=== PATIENT | female | born 1975 | race Caucasian/White ===

== ENCOUNTER 2020-07-09 14:36 | Emergency (ER) | payer OTHER, BC ==
[2020-07-09 15:00] VITALS: BP 121/73; PULSE 92
[2020-07-09] MEDS ORDERED: HYDROmorphone 1 MG/ML Syringe IVPUSH ONE ×2 (15:03→16:26)
[2020-07-09] MEDS ORDERED: Ondansetron 4 MG/2 ML SDV IVPUSH ONE (15:03)
[2020-07-09] MEDS ORDERED: Sodium Chloride 0.9% 1,000 ML IV ONE (15:11)
--- NOTE | 2020-07-09 15:13 | EDM.PDOC ---
"ED HPI GENERAL MEDICAL PROBLEM - General Chief Complaint: Gastrointestinal Problem Stated Complaint: RIGHT LOWER QUADRANT PAIN Time Seen by Provider: 07/09/20 15:10 Source of Information: Reports: Patient, RN, RN Notes Reviewed History Limitations: Reports: No Limitations - History of Present Illness INITIAL COMMENTS - FREE TEXT/NARRATIVE: Patient presents to the ED from the [facility] with complaints of abdominal pain, fever, and general malaise. She report the pain began in her RLQ on Tuesday night (07/06/2020), and has since progressively worsened. She describes it as burning in nature, and states it waxes and wanes in intensity but is always present. She states it originates in her RLQ but radiates into her right flank. She notes her Tmax at 101.3 last night which did respond to OTC acetaminophen. She attests to nausea which began with the pain. She denies vomiting, dysuria, hematuria, diarrhea, melena, or hematochezia. She notes her last bowel movement was about a week ago; she states this is normal for her as she is on chronic narcotics. Her LMP was . Right Lower Abdominal Pain Score (Numeric/FACES): 8 - Related Data Allergies Allergy/AdvReac Type Severity Reaction Status Date / Time No Known Allergies Allergy Verified 07/09/20 14:44 Home Meds: Home Meds Levothyroxine Sodium [Synthroid] 100 mcg PO DAILY 07/21/18 [History] Sertraline HCl [Zoloft] 50 mg PO DAILY 07/21/18 [History] Topiramate 100 mg PO DAILY 07/21/18 [History] buPROPion HCL [Wellbutrin Xl] 300 mg PO DAILY 07/21/18 [History] Past Medical History HEENT History: Reports: None Cardiovascular History: Reports: None, Other (See Below) Other Cardiovascular History: mitral valve prolapse Respiratory History: Reports: None Gastrointestinal History: Reports: None Genitourinary History: Reports: UTI, Recurrent [employer] History: Reports: Musculoskeletal History: Reports: Back Pain, Chronic Neurological History: Reports: None Psychiatric History: Reports: Depression Endocrine/Metabolic History: Reports: Hypothyroidism Hematologic History: Reports: None Immunologic History: Reports: None Oncologic (Cancer) History: Reports: None Dermatologic History: Reports: None - Infectious Disease History Infectious Disease History: Reports: Chicken Pox - Past Surgical History Head Surgeries/Procedures: Reports: None Female Surgical History: Reports: Tubal Ligation Neurological Surgical History: Reports: Spinal Fusion Musculoskeletal Surgical History: Reports: Other (See Below) Other Musculoskeletal Surgeries/Procedures:: spinal fusion, spinal repair, spinal leak, stimulator trial and implant Social & Family History - Family History Family Medical History: Noncontributory - Tobacco Use Tobacco Use Status *Q: Never Tobacco User Second Hand Smoke Exposure: No - Caffeine Use Caffeine Use: Reports: Coffee, Soda - Recreational Drug Use Recreational Drug Use: No ED ROS GENERAL - Review of Systems Review Of Systems: Comprehensive ROS is negative, except as noted in HPI. ED EXAM, GI/ABD - Physical Exam Exam: See Below Exam Limited By: No Limitations General Appearance: Alert, WD/WN, Mild Distress Respiratory/Chest: No Respiratory Distress, Lungs Clear, Normal Breath Sounds, No Accessory Muscle Use, Chest Non-Tender Cardiovascular: Normal Peripheral Pulses, No Edema, No Gallop, No Murmur, No Rub, Tachycardia GI/Abdominal Exam: Normal Bowel Sounds, Soft, No Distention, No Mass, Pelvis Stable, Guarding, Rebound, Tender (To palpation of RLQ and RUQ). No: Rigid (Female) Exam: Deferred Rectal (Female) Exam: Deferred Back Exam: Normal Inspection, Full Range of Motion, CVA Tenderness (L). No: CVA Tenderness (R) Extremities: Normal Inspection, Normal Range of Motion, Non-Tender, No Pedal Edema, Normal Capillary Refill Neurological: Alert, Oriented, CN II-XII Intact, Normal Cognition, Normal Gait, No Motor/Sensory Deficits Psychiatric: Normal Affect, Normal Mood Skin Exam: Warm, Intact, Normal Color, No Rash, Diaphoretic. No: Ecchymosis, Erythema, Mottled, Pallor, Petechiae, Rash Course - Vital Signs Last Recorded V/S: Last Vital Signs Temp 98.5 F 07/09/20 14:45 Pulse 92 07/09/20 14:45 Resp 18 07/09/20 14:45 BP 121/73 07/09/20 14:45 Pulse Ox 100 07/09/20 14:45 - Orders/Labs/Meds Orders: Active Orders 24 hr Category Date Time Status CULTURE BLOOD [BC] Stat Lab 07/09/20 14:54 Received CULTURE BLOOD [BC] Stat Lab 07/09/20 15:03 Received UA W/CHRISTI RFLX IF INDICATED [URIN] Stat Lab 07/09/20 15:01 Ordered Blood Culture x2 Reflex Set [OM.PC] Stat Oth 07/09/20 15:01 Ordered Labs: Laboratory Tests 07/09/20 07/09/20 07/09/20 Range/Units 15:03 15:03 15:03 WBC 3.3 L (5.0-10.0) 10^3/uL RBC 4.68 (4.2-5.4) 10^6/uL Hgb 14.4 (12.0-16.0) g/dL Hct 42.8 (37.0-47.0) % MCV 91.5 (80-100) fL MCH 30.8 (27.0-34.0) pg MCHC 33.6 (33.0-35.0) g/dL Plt Count 164 (150-450) 10^3/uL Neut % (Auto) 43.3 (42.2-75.2) % Lymph % (Auto) 38.1 (20.5-50.1) % Meagher % (Auto) 16.5 H (2-8) % Eos % (Auto) 1.8 (1.0-3.0) % Baso % (Auto) 0.3 (0.0-1.0) % Sodium 140 (136-145) mmol/L Potassium 3.6 (3.5-5.1) mmol/L Chloride 103 (98-107) mmol/L Carbon Dioxide 21 (21-32) mmol/L Anion Gap 19.6 H (7-13) mEq/L BUN 11 (7-18) mg/dL Creatinine 1.21 H (0.55-1.02) mg/dL Est Cr Clr Drug Dosing 64.16 mL/min Estimated GFR (MDRD) 48 BUN/Creatinine Ratio 9.1 (No establ ref range) Glucose 87 (74-99) mg/dL Lactic Acid 0.9 (0.4-2.0) mmol/L Calcium 8.5 (8.5-10.1) mg/dL Phosphorus 2.8 (2.6-4.7) mg/dL Magnesium 1.9 (1.8-2.4) mg/dL Total Bilirubin 0.4 (0.2-1.0) mg/dL AST 13 L (15-37) U/L ALT 18 (14-59) U/L Alkaline Phosphatase 82 (46-116) U/L C-Reactive Protein 0.6 (0.0-0.9) mg/dL Total Protein 7.6 (6.4-8.2) g/dL Albumin 4.1 (3.4-5.0) g/dL Globulin 3.5 Albumin/Globulin Ratio 1.2 Amylase 55 (25-115) U/L Lipase 71 L (73-393) U/L HCG, Qual 07/09/20 Range/Units 15:03 WBC (5.0-10.0) 10^3/uL RBC (4.2-5.4) 10^6/uL Hgb (12.0-16.0) g/dL Hct (37.0-47.0) % MCV (80-100) fL MCH (27.0-34.0) pg MCHC (33.0-35.0) g/dL Plt Count (150-450) 10^3/uL Neut % (Auto) (42.2-75.2) % Lymph % (Auto) (20.5-50.1) % Meagher % (Auto) (2-8) % Eos % (Auto) (1.0-3.0) % Baso % (Auto) (0.0-1.0) % Sodium (136-145) mmol/L Potassium (3.5-5.1) mmol/L Chloride (98-107) mmol/L Carbon Dioxide (21-32) mmol/L Anion Gap (7-13) mEq/L BUN (7-18) mg/dL Creatinine (0.55-1.02) mg/dL Est Cr Clr Drug Dosing mL/min Estimated GFR (MDRD) BUN/Creatinine Ratio (No establ ref range) Glucose (74-99) mg/dL Lactic Acid (0.4-2.0) mmol/L Calcium (8.5-10.1) mg/dL Phosphorus (2.6-4.7) mg/dL Magnesium (1.8-2.4) mg/dL Total Bilirubin (0.2-1.0) mg/dL AST (15-37) U/L ALT (14-59) U/L Alkaline Phosphatase (46-116) U/L C-Reactive Protein (0.0-0.9) mg/dL Total Protein (6.4-8.2) g/dL Albumin (3.4-5.0) g/dL Globulin Albumin/Globulin Ratio Amylase (25-115) U/L Lipase (73-393) U/L HCG, Qual Negative Meds: Medications Discontinued Medications Generic Name Dose Route Start Last Admin Trade Name Freq PRN Reason Stop Dose Admin Hydromorphone HCl 1 mg 07/09/20 15:03 07/09/20 15:24 Dilaudid IVPUSH 07/09/20 15:04 1 mg ONETIME ONE Administration Hydromorphone HCl 1 mg 07/09/20 16:26 07/09/20 16:50 Dilaudid IVPUSH 07/09/20 16:27 1 mg ONETIME ONE Administration Sodium Chloride 1,000 mls @ 999 mls/hr 07/09/20 15:11 07/09/20 15:16 Normal Saline IV 07/09/20 16:11 999 mls/hr .BOLUS ONE Administration Ondansetron HCl 4 mg 07/09/20 15:03 07/09/20 15:20 Zofran IVPUSH 07/09/20 15:04 4 mg ONETIME ONE Administration - Radiology Interpretation Free Text/Narrative:: [facility] Final Radiology Report Call: [phone] assistance Online chat: [email or web address] Name: JORGITO VIVAS Age: 45Years F Date: 07/09/2020 SSN: -- : [id number] Study: CT ABDOMEN PELVIS WO CONT Requesting Physician: Caryl Finch Images: [id number] Addl Studies: Provided Clinical History: RLQ pain, radiates into flank; No WBC elevation Contrast: Without Contrast Medium: Contrast Amount: Contrast Method: Page 1 of 2 PROCEDURE INFORMATION: Exam: CT Abdomen And Pelvis Without Contrast Exam date and time: 07/09/2020 4:28 PM Age: 45 years old Clinical indication: Abdominal pain; Flank; Right; Additional info: Rlq pain, radiates into flank; No wbc elevation TECHNIQUE: Imaging protocol: Computed tomography of the abdomen and pelvis without contrast. Radiation optimization: All CT scans at this facility use at least one of these dose optimization techniques: automated exposure control; mA and/or kV adjustment per patient size (includes targeted exams where dose is matched to clinical indication); or iterative reconstruction. COMPARISON: No relevant prior studies available. FINDINGS: Liver: Normal. No mass. Gallbladder and bile ducts: Normal. No calcified stones. No ductal dilation. Pancreas: Normal. No ductal dilation. Spleen: Normal. No splenomegaly. Adrenal glands: Normal. No mass. Kidneys and ureters: Normal. No hydronephrosis. Stomach and bowel: Unremarkable. No obstruction. No mucosal thickening. Appendix: No evidence of appendicitis. Intraperitoneal space: Unremarkable. No free air. No significant fluid collection. Vasculature: Unremarkable. No abdominal aortic aneurysm. Lymph nodes: Unremarkable. No enlarged lymph nodes. Urinary bladder: Unremarkable as visualized. Reproductive: Unremarkable as visualized. JORGITO VIVAS | Final Radiology Report CONFIDENTIALITY STATEMENT This report is intended only for use by the referring physician, and only in accordance with law. If you received this in error, call [phone]. Page 2 of 2 Bones/joints: Posterior fusion L4-L5 noted. No acute fracture. Soft tissues: Unremarkable. IMPRESSION: No acute findings. Thank you for allowing us to participate in the care of your patient. Dictated and Authenticated by: Ignacio Izaguirre MD 07/09/2020 5:08 PM Central Time ([place] & [place]) - Re-Assessments/Exams Free Text/Narrative Re-Assessment/Exam: 07/09/20 Urine from [facility] unremarkable for UTI. Blood work and imaging unremarkable for acute processes. Discussed likelihood of constipation associated with chronic narcotic use. Departure - Departure Time of Disposition: 17:43 Disposition: Home, Self-Care 01 Condition: Good Clinical Impression: Constipation - Discharge Information *PRESCRIPTION DRUG MONITORING PROGRAM REVIEWED*: Not Applicable *COPY OF PRESCRIPTION DRUG MONITORING REPORT IN PATIENT GREER: Not Applicable Instructions: Constipation, Adult, [id number] Forms: ED Department Discharge Additional Instructions: Take miraLAX, full dose daily, until you experience results. Drink plenty of fluids to stay hydrated. Follow up with primary care provider in 3-5 days if you are not feeling improvement. Sepsis Event Note (ED) - Evaluation Sepsis Screening Result: No Definite Risk - Focused Exam Vital Signs: Vital Signs Temp Pulse Resp BP Pulse Ox 07/09/20 14:45 98.5 F 92 18 121/73 100 - My Orders Last 24 Hours: My Active Orders 07/09/20 14:54 CULTURE BLOOD [BC] Stat 07/09/20 15:01 UA W/CHRISTI RFLX IF INDICATED [URIN] Stat Blood Culture x2 Reflex Set [OM.PC] Stat 07/09/20 15:03 CULTURE BLOOD [BC] Stat - Assessment/Plan Last 24 Hours: My Active Orders 07/09/20 14:54 CULTURE BLOOD [BC] Stat 07/09/20 15:01 UA W/CHRISTI RFLX IF INDICATED [URIN] Stat Blood Culture x2 Reflex Set [OM.PC] Stat 07/09/20 15:03 CULTURE BLOOD [BC] Stat"
[2020-07-09 15:33] LABS: ANION GAP 19.6 mEq/L (7-13)
--- NOTE | 2020-07-09 17:08 | CT ---
PROCEDURE INFORMATION: Exam: CT Abdomen And Pelvis Without Contrast Exam date and time: 07/09/2020 4:28 PM Age: 45 years old Clinical indication: Abdominal pain; Flank; Right; Additional info: Rlq pain, radiates into flank; No wbc elevation TECHNIQUE: Imaging protocol: Computed tomography of the abdomen and pelvis without contrast. Radiation optimization: All CT scans at this facility use at least one of these dose optimization techniques: automated exposure control; mA and/or kV adjustment per patient size (includes targeted exams where dose is matched to clinical indication); or iterative reconstruction. COMPARISON: No relevant prior studies available. FINDINGS: Liver: Normal. No mass. Gallbladder and bile ducts: Normal. No calcified stones. No ductal dilation. Pancreas: Normal. No ductal dilation. Spleen: Normal. No splenomegaly. Adrenal glands: Normal. No mass. Kidneys and ureters: Normal. No hydronephrosis. Stomach and bowel: Unremarkable. No obstruction. No mucosal thickening. Appendix: No evidence of appendicitis. Intraperitoneal space: Unremarkable. No free air. No significant fluid collection. Vasculature: Unremarkable. No abdominal aortic aneurysm. Lymph nodes: Unremarkable. No enlarged lymph nodes. Urinary bladder: Unremarkable as visualized. Reproductive: Unremarkable as visualized. Bones/joints: Posterior fusion L4-L5 noted. No acute fracture. Soft tissues: Unremarkable. IMPRESSION: No acute findings.
== END 2020-07-09 17:55 | disposition home or self-care (01) ==
LOC: DL.ED 14:36
DX: K59.00 Constipation, unspecified (principal); F32.9 Major depressive disorder, single episode, unspecified; E03.9 Hypothyroidism, unspecified; Z79.899 Other long term (current) drug therapy
CPT/HCPCS: 36415; 74176; 80053; 82150; 83605; 83690; 83735; 84100; 84703; 85025; 86140; 87040; 96374; 96375; 96376; 99284; J1170; J2405; J7030

== ENCOUNTER 2022-02-25 10:04 | Emergency (ER) | payer OTHER, MEDICARE ==
[2022-02-25 10:25] VITALS: BP 131/82; PULSE 81
[2022-02-25] MEDS ORDERED: HYDROmorphone 0.5 MG/0.5 ML Syringe IVPUSH ONE ×2 (10:46→12:14)
[2022-02-25] MEDS ORDERED: Ondansetron 4 MG/2 ML SDV IVPUSH ONE (10:46)
[2022-02-25] MEDS ORDERED: Sodium Chloride 0.9% 1,000 ML IV ONE (11:10)
[2022-02-25] MEDS ORDERED: methylPREDNISolone Sodium Succinate 125 MG/2 ML SDV IVPUSH ONE (13:39)
== END 2022-02-25 14:16 | disposition home or self-care (01) ==
LOC: DL.ED 10:04
DX: S39.012A Strain of muscle, fascia and tendon of lower back, initial encounter (principal); E03.9 Hypothyroidism, unspecified; Z79.899 Other long term (current) drug therapy; Z86.16 Personal history of COVID-19; Z87.891 Personal history of nicotine dependence; X50.0XXA Overexertion from strenuous movement or load, initial encounter
CPT/HCPCS: 72146; 72148; 96374; 96375; 96376; 99283; J1170; J2405; J2930; J7030